=== PATIENT | male | born 1935 | race Caucasian/White ===

== ENCOUNTER 2018-07-05 01:40 | Emergency (ER) | payer SELFPAY ==
[2018-07-05] MEDS ORDERED: LIDOCAINE 1% W/ EPINEPHRINE 20 ML VIAL INJ ONE (01:53)
[2018-07-05] MEDS ORDERED: CHLORHEXIDINE GLUCONATE 4 % 15 ML UD TOP ONE (01:53)
[2018-07-05 01:59] VITALS: TEMP 98.2
--- NOTE | 2018-07-05 01:59 | ED.PDOC ---
History of Present Illness - General Chief Complaint: Laceration Stated Complaint: laceration forehead Time Seen by Provider: 07/05/18 01:43 Source: patient Exam Limitations: no limitations - History of Present Illness Initial Comments: Eitan Gonzalez 82 y/o male stated he rolled out of his bed tonight and fell head hitting nightstand table noted bleeding on side of head after incident;denies LOC or neck pains or blurry vision ;mild pain right forehead;remembers incident; speech fluent. Occurred: just prior to arrival Severity: moderate Pain Location: head Method of Injury: fall, other - see hpi Improving Factors: nothing Worsening Factors: nothing Loss of Consciousness: no loss of consciousness Associated Symptoms (Fall): other - see hpi Allergies/Adverse Reactions: Allergies NO KNOWN ALLERGY Allergy (Verified 07/05/18 01:58) Home Medications: Ambulatory Orders Unobtainable [Unobtainable] 07/05/18 Review of Systems - Review of Systems Constitutional: States: no symptoms reported EENTM: States: no symptoms reported Respiratory: States: no symptoms reported Cardiology: States: no symptoms reported Skin: States: see HPI Neurological: States: no symptoms reported Past Medical History (General) - Patient Medical History Hx Hypertension: Yes Surgical History: appendectomy, other - hernia repair,hemorrhoidectomy Family Medical History - Family History Father Family History: Unknown Physical Exam - Physical Exam General Appearance: Alert, Comfortable, No apparent distress Head Injury: other - forehead laceration Eye Exam: bilateral normal ENT Exam: hearing grossly normal, no evidence of ENT injury, no dental injury Neck Exam: non-tender, full range of motion, normal alignment, normal inspection Cardiovascular/Respiratory: regular rate, rhythm, no M/R/G, normal peripheral pulses, no JVD Gastrointestinal/Abdominal: non tender, soft Back Exam: no CVA tenderness, no vertebral tenderness Extremity Exam: no evidence of injury, non-tender, no pedal edema Neurologic: alert, oriented x 3 Skin Exam: normal color, warm/dry, other - laceration 2 cm. forehead - Nikolas Coma Score Best Eye Response (Nikolas): (4) open spontaneously Best Verbal Response ([place]): (5) oriented Best Motor Response (Nikolas): (6) obeys commands Nikolas Total: 15 Progress - Progress Progress: 07/05/18 03:01 Vital Signs - 8 hr 07/05/18 01:55 Temperature 98.2 F Pulse Rate [ 73 Left] Respiratory 18 Rate Blood Pressure 181/107 [Right Arm] O2 Sat by Pulse 96 Oximetry Procedures - Laceration/Wound Repair Head Wound Length (cm): 2 - forehead right side Wound's Depth, Shape: into muscle Wound Explored: no foreign body removed Irrigated w/ Saline (cc's): 30 Betadine Prep?: No - hibiclens Anesthesia: Lidocaine w/ Epi Volume Anesthetic (cc's): 5 Wound Repaired With: sutures Suture Size/Type: 5:0, vicryl rapide Number of Sutures: 5 Layer Closure?: Yes Deep Layer Suture Size/Type: 5:0, vicryl rapide Number Deep Layer Sutures: 4 Sterile Dressing Applied?: Yes Departure - Departure Clinical Impression: Fall from bed, initial encounter Laceration of forehead without complication Qualifiers: Encounter type: initial encounter Qualified Code(s): S01.81XA - Laceration without foreign body of other part of head, initial encounter Hypertension Qualifiers: Hypertension type: unspecified Qualified Code(s): I10 - Essential (primary) hypertension Time of Disposition: 03:05 Disposition: Discharge to Home or Self Care Condition: Fair Departure Forms: ED Discharge - Pt. Copy, Patient Portal Self Enrollment Instructions: DI for Laceration Repair, DASH Diet, High Blood Pressure in Adults Home Medications: Ambulatory Orders Unobtainable [Unobtainable] 07/05/18 Additional Instructions: Return to Emergency room as needed;May take Tylenol 500 mg every 6 hours for pain as needed;Need to sign up with primary Md;continue with all home medications
[2018-07-05] MEDS ORDERED: TETANUS,DIPHTHERIA,PERTUSSIS 1 EA SYG IM ONE (02:03)
[2018-07-05] MEDS ORDERED: NEOMYCIN-BACITRACIN-POLYMYXIN 0.9 GM UD TOP ONE (02:50)
[2018-07-05] MEDS ORDERED: cloNIDine HCL 0.1 MG TAB PO ONE (03:01)
[2018-07-05] MEDS ORDERED: cloNIDine HCL 0.1 MG TAB ONE (03:02)
[2018-07-05 03:16] VITALS: BP 190/114; O2SAT 95
== END 2018-07-05 03:17 | disposition home or self-care (01) ==
LOC: ER 01:40
DX: S01.81XA Laceration without foreign body of other part of head, initial encounter (principal); I10 Essential (primary) hypertension; Z23 Encounter for immunization; W06.XXXA Fall from bed, initial encounter; Y92.9 Unspecified place or not applicable

== ENCOUNTER 2018-09-13 09:48 | Emergency (ER) | payer SELFPAY ==
[2018-09-13] MEDS ORDERED: IBUPROFEN 200 MG TAB PO ONE (10:15)
[2018-09-13] MEDS ORDERED: AZITHROMYCIN 250 MG TAB PO ONE (10:59)
--- NOTE | 2018-09-13 11:04 | ED.PDOC ---
History of Present Illness - General Chief Complaint: Fever Stated Complaint: fever,weakness Time Seen by Provider: 09/13/18 10:09 Source: patient Exam Limitations: no limitations - History of Present Illness Initial Comments: the patient is an 83-year-old male presenting to the emergency room with symptoms of nasal congestion and runny nose along with sore throat and a cough and a moderate fever for the last 4 days. He has had some body aches and mild headaches. No altered mental status and no nuchal rigidity. He showed up because he is simply not improving. No vomiting. He has had some mild disequilibrium when his fevers have gotten higher. Timing/Duration: other - roximally 4 days Severity: mild Improving Factors: nothing Worsening Factors: nothing Associated Symptoms: cough, fever/chills, loss of appetite, malaise Allergies/Adverse Reactions: Allergies NO KNOWN ALLERGY Allergy (Verified 07/05/18 01:58) Home Medications: Ambulatory Orders Azithromycin 500 mg PO DAILY #5 tab 09/13/18 Review of Systems - Review of Systems Constitutional: States: chills, fever, malaise, weakness - generalized EENTM: States: nose congestion, throat pain Respiratory: States: cough Cardiology: States: no symptoms reported Gastrointestinal/Abdominal: States: no symptoms reported Genitourinary: States: no symptoms reported Musculoskeletal: States: no symptoms reported Skin: States: no symptoms reported Neurological: States: headache - ild intermittent Endocrine: States: no symptoms reported All other Systems: No Change from Baseline Past Medical History (General) - Patient Medical History Hx Stroke: No Hx Congestive Heart Failure: No Hx Hypertension: Yes Hx Diabetes: No Surgical History: appendectomy - Vaccination History Hx Tetanus, Diphtheria Vaccination: No Hx Influenza Vaccination: No - has lived in [place] for the past 30 yrs and just returned in February Hx Pneumococcal Vaccination: No - Social History Hx Tobacco Use: No Family Medical History - Family History Father Family History: Unknown Physical Exam - Physical Exam General Appearance: Alert, Comfortable, No apparent distress Eye Exam: bilateral normal Ears, Nose, Throat: hearing grossly normal, nasal congestion, pharyngeal erythema Neck: supple, normal inspection Respiratory: lungs clear, normal breath sounds, no respiratory distress, no accessory muscle use Cardiovascular/Chest: normal peripheral pulses, regular rate, rhythm, no edema Peripheral Pulses: radial,right: 2+, radial,left: 2+, dorsalis pedis,right: 2+, dorsalis pedis,left: 2+ Gastrointestinal/Abdominal: non tender, soft Rectal Exam: deferred Back Exam: no CVA tenderness, no vertebral tenderness Extremity: non-tender, normal inspection, no pedal edema, normal capillary refi ll 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 He has tested negative for the flu here. Lungs are clear at this time. Given the duration of symptoms, I am however going to place the patient on azithromycin for 5 days in case this is a manifestation of an atypical bacterial infection or in case the patient is starting to develop a secondary bacterial infection on top of the viral URI. He needs to keep himself well-hydrated. Additionally I do recommend that he take 2 ibuprofen with food every 8 hours for the next 2 days or so to help reduce any fever and a help reduce body aches and inflammatory reaction. ER warnings were given. He should follow up with his primary care doctor towards the end of the week otherwise. Departure - Departure Clinical Impression: Viral URI Disposition: Discharge to Home or Self Care Condition: Fair Departure Forms: ED Discharge - Pt. Copy, Patient Portal Self Enrollment Instructions: Viral Upper Respiratory Infection, Adult (DC) Diet: regular diet Activity: increase activity as tolerated Prescriptions: Azithromycin 500 mg PO DAILY #5 tab Home Medications: Ambulatory Orders Azithromycin 500 mg PO DAILY #5 tab 09/13/18 Additional Instructions: the patient's 83-year-old male presenting with what appears to be a viral upper respiratory tract infection. He has tested negative for the flu here. Lungs are clear at this time. Given the duration of symptoms, I am however going to place the patient on azithromycin for 5 days in case this is a manifestation of an atypical bacterial infection or in case the patient is starting to develop a secondary bacterial infection on top of the viral URI. He needs to keep himself well-hydrated. Additionally I do recommend that he take 2 ibuprofen with food every 8 hours for the next 2 days or so to help reduce any fever and a help reduce body aches and inflammatory reaction. ER warnings were given. He should follow up with his primary care doctor towards the end of the week otherwise.
[2018-09-13 11:17] VITALS: BP 133/84; O2SAT 96
[2018-09-13 11:20] VITALS: TEMP 100.9
== END 2018-09-13 11:18 | disposition home or self-care (01) ==
LOC: ER 09:48
DX: J06.9 Acute upper respiratory infection, unspecified (principal); I10 Essential (primary) hypertension
CPT/HCPCS: 87502; Q0144

== ENCOUNTER → 2019-04-03 | Outpatient (CLI) | payer MEDICARE, OTHER ==
--- NOTE | 2019-04-03 16:02 | US ---
EXAM DESCRIPTION: Venous,Lower Extremity LT (accession [id number]), Venous,Lower Extremity RT (accession [id number]): Ultrasound. CLINICAL HISTORY: EDEMA and swelling, bilateral lower extremities. COMPARISON: None Available. TECHNIQUE: Two -dimensional and doppler sonographic evaluation of the deep venous system of the bilateral lower extremities. FINDINGS: Doppler evaluation shows normal color flow and normal phasicity and augmentation of the bilateral common femoral veins, femoral veins, popliteal veins, greater saphenous vein, and peroneal veins, Posterior tibial veins. These veins showed normal occlusion with transducer pressure. Two-dimensional survey showed no echogenic clot within these veins. IMPRESSION: Duplex ultrasound evaluation of the bilateral lower extremity deep venous systems showing no evidence of thrombosis. Electronically signed by: Jose Carlos Solitario MD 04/03/2019 4:00 PM CDT
--- NOTE | 2019-04-03 16:02 | US ---
EXAM DESCRIPTION: Venous,Lower Extremity LT (accession [id number]), Venous,Lower Extremity RT (accession [id number]): Ultrasound. CLINICAL HISTORY: EDEMA and swelling, bilateral lower extremities. COMPARISON: None Available. TECHNIQUE: Two -dimensional and doppler sonographic evaluation of the deep venous system of the bilateral lower extremities. FINDINGS: Doppler evaluation shows normal color flow and normal phasicity and augmentation of the bilateral common femoral veins, femoral veins, popliteal veins, greater saphenous vein, and peroneal veins, Posterior tibial veins. These veins showed normal occlusion with transducer pressure. Two-dimensional survey showed no echogenic clot within these veins. IMPRESSION: Duplex ultrasound evaluation of the bilateral lower extremity deep venous systems showing no evidence of thrombosis. Electronically signed by: Jose Carlos Solitario MD 04/03/2019 4:00 PM CDT
== END ==
LOC: LAB.O 15:04
PROVIDERS: ATTEND Physician Assistant
DX: R60.0 Localized edema (principal)

== ENCOUNTER → 2019-05-05 | Outpatient (CLI) | payer MEDICARE, OTHER ==
--- NOTE | 2019-05-05 13:57 | US ---
PROVIDED CLINICAL HISTORY/REASON FOR EXAM: SWELLING OF TESTICLE TECHNIQUE: Real-time sonographic evaluation of the scrotum was performed by a steelworker and multiple images were saved for interpretation without the benefit of real-time examination. FINDINGS: The right testicle measures 3.1 x 2.5 x 4.2 cm and the left testicle measures 1.7 x 2.1 x 3.5 cm. Both testicles are located within the scrotum. The testicles demonstrate normal symmetric size, echogenicity, and vascular flow. There is no intratesticular mass. Right tubular ectasia of the rete testes. The right epididymal head measures 0.7 x 0.8 x 1.1 cm and the left measures 0.6 x 0.5 x 0.9 cm. The left epididymis. Hypervascular right epididymis. Small right hydrocele. There is no varicocele. IMPRESSION: 1. Findings concerning for right epididymitis. 2. Small right hydrocele. Electronically signed by: Jackson Toure MD 05/05/2019 1:56 PM CDT
== END ==
LOC: US 13:01
PROVIDERS: ATTEND Nurse Practitioner Family
DX: N50.9 Disorder of male genital organs, unspecified (principal); N43.3 Hydrocele, unspecified

== ENCOUNTER → 2019-05-09 | Outpatient (CLI) | payer MEDICARE, OTHER | LOC: GMAM 11:49 | PROVIDERS: ATTEND Family Medicine | DX: E53.8 Deficiency of other specified B group vitamins (principal); D53.9 Nutritional anemia, unspecified; D50.9 Iron deficiency anemia, unspecified; I10 Essential (primary) hypertension ==

== ENCOUNTER → 2019-07-31 | Outpatient (CLI) | payer MEDICARE, OTHER | END | disposition home or self-care (01) | LOC: GMAM 10:42 | PROVIDERS: ATTEND Family Medicine | DX: D51.9 Vitamin B12 deficiency anemia, unspecified (principal) ==

== ENCOUNTER → 2019-08-03 | Outpatient (CLI) | payer MEDICARE, OTHER ==
--- NOTE | 2019-08-04 09:14 | US ---
EXAM DESCRIPTION: Soft Tissue,Abdomen: ULTRASOUND. CLINICAL HISTORY: 84 years Male VENTRAL HERNIA WITHOUT OBSTRUCTION OR GANGRENE COMPARISON: None Available. TECHNIQUE: Transcutaneous scanning: Blood-scale and Doppler modes. FINDINGS: Probable mass mid abdomen. Hypoechoic tissue in the anterior adipose layer just below the skin surface measuring 4.1 x 3.7 cm. No fluid collection or distinct cyst. No calcifications. IMPRESSION: Ventral hernia corresponds to palpable mass. Electronically signed by: Jose Carlos Solitario MD 08/04/2019 9:12 AM [facility]
== END ==
LOC: US 08:30
PROVIDERS: ATTEND Family Medicine
DX: K43.9 Ventral hernia without obstruction or gangrene (principal)

== ENCOUNTER 2019-09-15 05:45 | Day surgery (SDC) | payer MEDICARE, OTHER ==
[2019-09-15] MEDS ORDERED: PROPOFOL 200 MG/20 ML VIAL IV ONE (05:46)
[2019-09-15] MEDS ORDERED: LIDOCAINE 1% 10 ML VIAL INJ ONE (05:46)
[2019-09-15] MEDS ORDERED: LACTATED RINGERS 1,000 ML ONE (07:24)
--- NOTE | 2019-09-15 13:09 | OP ---
DATE OF PROCEDURE: 09/15/19 PREOPERATIVE DIAGNOSIS: 1. Anemia. POSTOPERATIVE DIAGNOSIS: 1. Gastritis. 2. Hiatal hernia, possible paraesophageal hernia. PROCEDURE: 1. EGD. 2. Colonoscopy. SURGEON: Konrad Overton MD ANESTHESIA: General. FINDINGS: In the body of the stomach up near his hiatus was evidence of either healed ulcer or significant inflammation. Planograph Operator biopsy was taken. Duodenum was normal. He had a significant sized hiatal hernia with what appeared as sliding stomach, possible esophageal or large hiatal hernia, probably 6 cm. COMPLICATIONS: None. ESTIMATED BLOOD LOSS: Minimal. BIOPSIES: Times 1 in the body. PLAN: Proceed with colonoscopy and discharge. PROCEDURE: General anesthesia was induced in the lateral position. Bite block was in place. The endoscope was inserted without difficulty. The distal esophagus, it appeared we got into the stomach prior to necessarily seeing the hiatus, which was suspicion for a large hiatal hernia or paraesophageal hernia. We then went around into the duodenum, which was definitely out of position. The duodenal opening was to the right and superior indicating abnormal placement of the stomach, possibly from paraesophageal hernia. We entered the duodenum without difficulty. We went to the third portion. Upon withdrawal, there was no evidence of ulcers or history of bleeding here. The pylorus appeared relatively normal. Upon withdrawal, retroflexion revealed the large hiatal hernia. Photos were taken. There was then an area of erosion in the proximal body that was biopsied, possibly a healed ulcer. No masses, polyps or other abnormalities were seen. The scope was withdrawn. We plan to get a CT scan to evaluate the hiatal hernia/paraesophageal hernia. He was then rotated on the bed and placed in lateral position. Digital exam revealed a small stool bolus in the rectum. The endoscope was passed all the way to the cecum. The appendiceal orifice was identified. We then withdrew the scope slowly and carefully with an adequate prep, examining all the surfaces and no polyps were seen or other abnormalities. The patient tolerated the procedure and was then awakened and taken to Recovery to be discharged. #[id number] MTDD
[2019-09-15 15:07] VITALS: BP 157/97; TEMP 97.5; O2SAT 100
== END 2019-09-15 13:00 | disposition home or self-care (01) ==
LOC: AMB 05:45
PROVIDERS: ATTEND Surgery
DX: D50.9 Iron deficiency anemia, unspecified (principal); K44.9 Diaphragmatic hernia without obstruction or gangrene; K29.70 Gastritis, unspecified, without bleeding; I10 Essential (primary) hypertension; Z96.653 Presence of artificial knee joint, bilateral; Z79.82 Long term (current) use of aspirin; Z79.899 Other long term (current) drug therapy
CPT/HCPCS: 00813; 43239; 45378; 88305; J3490; J7120

== ENCOUNTER → 2019-09-19 | Outpatient (CLI) | payer MEDICARE, OTHER ==
--- NOTE | 2019-09-19 11:31 | CT ---
EXAM DESCRIPTION: Abdomen w/Contrast (accession [id number]), Chest w/Contrast (accession [id number]) CLINICAL HISTORY: PARAESOPHAGEAL HERNIA COMPARISON: None. TECHNIQUE: Postcontrast CT images of the chest and abdomen are obtained with coronal and sagittal reconstructed images. This exam was performed according to our departmental dose-optimization program, which includes automated exposure control, adjustment of the mA and/or kV according to patient size and/or use of iterative reconstruction technique . FINDINGS: The stomach is primarily intrathoracic. 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 The gastroesophageal junction is seen on the left above the level of the esophageal hiatus. No volvulus is appreciated at this time. Mesenteric fat from the upper abdomen also extends into the retrocardiac lower thorax with angulation of the transverse colon towards the esophageal hiatus. Heart is mildly enlarged. Moderate coronary artery calcifications. Moderate scattered calcified plaque of a elongated, tortuous thoracic aorta is seen. Less than 1 cm mediastinal and hilar lymph nodes are identified. No pleural or pericardial effusion. Lungs are normally aerated. Mild scattered centrilobular emphysematous changes. No acute infiltrate or consolidation. No worrisome noncalcified pulmonary nodules. No aggressive bony lesions. Moderate degenerative changes of the thoracic spine are seen. Small 11 mm fluid attenuation cyst of the lateral mid to lower right lobe liver. Liver is otherwise unremarkable. The spleen, pancreas, and adrenal glands are unremarkable. Surgical clips from cholecystectomy are seen. 3 mm nonobstructing calcification in an upper pole calyx of the left kidney. Several left greater than right renal cortical cysts are seen. The largest measures 4.1 cm. No hydronephrosis. Moderate calcifications of the arterial vasculature with moderate tortuosity of the abdominal aorta. Moderate to severe scattered diverticuli of the colon without associated inflammatory changes or fluid collections. Ventral hernia in the midline upper abdomen with abdominal wall defect measuring 4.5 cm. Hernia sac measures 4.6 x 2.4 x 4.6 cm. Herniation of mesenteric fat and a loop of small bowel without bowel obstruction or incarceration at this time. No pathologic lymphadenopathy. Multiple level severe spondylitic changes of the spine are seen. 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 Mild herniation of mesenteric fat above the esophageal hiatus is also seen. Mild emphysematous changes to lungs are seen. Severe colon diverticulosis without CT evidence of diverticulitis. Ventral hernia containing loop of small bowel in the mid upper abdomen is seen without bowel obstruction or incarceration at this time. Electronically signed by: Sanket Fitch MD 09/19/2019 11:30 AM [employer]
== END ==
LOC: CT 09:15
PROVIDERS: ATTEND Surgery
DX: K44.0 Diaphragmatic hernia with obstruction, without gangrene (principal); K43.9 Ventral hernia without obstruction or gangrene; K57.30 Diverticulosis of large intestine without perforation or abscess without bleeding; J43.9 Emphysema, unspecified; K66.8 Other specified disorders of peritoneum

== ENCOUNTER 2019-09-21 05:37 | Day surgery (SDC) | payer MEDICARE, OTHER ==
[2019-09-21] MEDS ORDERED: KETOROLAC TROMETHAMINE INJ 30 MG/ML VIAL ONE (07:00)
[2019-09-21] MEDS ORDERED: DEXAMETHASONE INJ 10 MG/ML VIAL ONE (07:00)
[2019-09-21] MEDS ORDERED: MAGNESIUM SULFATE INJ 1 GM/2 ML VIAL ONE (07:00)
[2019-09-21] MEDS ORDERED: ceFAZolin SODIUM 1 GM VIAL ONE (07:00)
[2019-09-21] MEDS ORDERED: PROPOFOL 200 MG/20 ML VIAL IV ONE (07:00)
[2019-09-21] MEDS ORDERED: raNITIdine HCL INJ 25 MG/ML VIAL ONE (07:00)
[2019-09-21] MEDS ORDERED: LACTATED RINGERS 1,000 ML ONE (10:12)
[2019-09-21] MEDS ORDERED: KETAMINE HCL 100 MG/ML VIAL ONE (11:31)
[2019-09-21] MEDS ORDERED: fentaNYL CITRATE INJ 50 MCG/ML AMP ONE ×2 (11:33→13:03)
[2019-09-21] MEDS ORDERED: BUPIVACAINE 0.5% W/EPI 30 ML VIAL INJ ONE (11:35)
[2019-09-21] MEDS ORDERED: hydrALAZINE HCl 20 MG/ML VIAL ONE (12:54)
--- NOTE | 2019-09-21 13:11 | OP ---
DATE OF PROCEDURE: 09/21/19 PREOPERATIVE DIAGNOSIS: 1. Ventral incisional hernia. POSTOPERATIVE DIAGNOSIS: 1. Incarcerated ventral incisional hernia. PROCEDURE: 1. Repair of incarcerated ventral incisional hernia with mesh. SURGEON: Konrad Overton MD. ANESTHESIA: General and local. FINDINGS: He had an approximately 4 cm defect with incarcerated omentum in the medial portion of the previous incision. COMPLICATIONS: None. ESTIMATED BLOOD LOSS: Minimal. MESH: 2.5 inch Ventralex. PLAN: Discharge. INDICATION: As stated. PROCEDURE: General anesthesia was induced. He was prepped and draped in sterile fashion. Incision was made over the james after injecting local anesthesia. Subcutaneous tissues were taken down. We identified the hernia sac, isolated down to the fascial edges. We then entered it. There was incarcerated omentum that we dissected off the sac. Minimal bleeding was controlled with cautery. Once we had the sac completely mobilized and the incarcerations off, we trimmed it around the fascial edge, trimmed up the edge of the fascia and the old scar tissue and then began our closures. 0 PDS pop- offs were used and closed from beyond the apices. Once we reached the middle, we introduced the 2.5 inch Ventralex, centered it nicely and then incorporated the tail in the last 3 central sutures, trimming the tail, burying the tail with the closure. There was now a nice closure. The area was irrigated. There was no bleeding. The wound was closed in 2 additional layers of absorbable suture and dressing applied. He was awakened and taken to Recovery to be discharged. #[id number] cc: Abdiel Feliz MD [facility]
[2019-09-21 14:44] VITALS: BP 160/89; TEMP 99.2; O2SAT 98
== END 2019-09-21 14:50 | disposition home or self-care (01) ==
LOC: AMB 05:37
PROVIDERS: ATTEND Surgery
DX: K43.0 Incisional hernia with obstruction, without gangrene (principal); I10 Essential (primary) hypertension; D50.9 Iron deficiency anemia, unspecified; Z79.82 Long term (current) use of aspirin; Z79.899 Other long term (current) drug therapy
CPT/HCPCS: 00832; 49560; 49568; J0360; J0690; J1100; J1885; J2780; J3010; J3475; J3490; J7120